=== PATIENT | female | born 1970 | race Caucasian/White ===

== ENCOUNTER 2023-05-16 02:48 | Outpatient (CLI) | payer BC, SELFPAY ==
[2023-05-16 11:56] LABS: HCT 40.9 % (36.0-46.0); HGB 13.4 g/dL (11.2-15.7); MCH 29.8 pg (27.0-33.0); MCHC 32.8 % (32.0-36.0); MCV 91 fL (80-95); MPV 11.4 fL (8.0-11.0); Platelet Count 212 10^3/uL (130-400); RDW 13.5 % (11.7-14.6); RDW-SD 45.2 fL; WBC 5.44 10^3/uL (4.4-10.8)
[2023-05-16 12:52] LABS: Anion Gap 7.7 mmol/L (3-11); BUN 19 mg/dL (7-18); CO2 25.3 mmol/L (21.0-32.0); CREATININE 0.7 mg/dL (0.55-1.02); Chloride 107 mmol/L (98-107); Cholesterol 247 mg/dL (<200); Estimated GFR 103.35 (mL/min/1.73m2); Glucose 86 mg/dL (74-106); HDL Cholesterol 96 mg/dL (40-60); Potassium 4.2 mmol/L (3.5-5.1); Sodium 140 mmol/L (136-145)
[2023-05-16 12:55] LABS: Triglyceride <25 mg/dL (<150)
[2023-05-16 13:05] LABS: LDL CHOLESTEROL 129 mg/dL (<100)
== END 2023-05-16 02:49 | disposition home or self-care (01) ==
PROVIDERS: PCP Nurse Practitioner Family; Visit Provider Nurse Practitioner Family
DX: Z23 Encounter for immunization (principal)
CPT/HCPCS: 36415; 80048; 80061; 83721; 85027

== ENCOUNTER 2025-09-18 15:44 | Outpatient (REF) | payer BC, SELFPAY | END 2025-09-18 15:45 | disposition home or self-care (01) | LOC: LBN 15:44 | PROVIDERS: PCP Nurse Practitioner Family; Visit Provider Obstetrics & Gynecology | DX: Z12.4 Encounter for screening for malignant neoplasm of cervix (principal) | CPT/HCPCS: 88142; 87624 ==